=== PATIENT | female | born 1980 | race Caucasian/White ===

== ENCOUNTER → 2017-03-17 | Day surgery (SDC) | payer OTHER ==
[~2017-03-17] VITALS: Ht 167.6 cm; Wt 79.8 kg
[~2017-03-17] MED LIST: MOTRIN 800MG T800 MG PO; PRENATAL1 TA2 PO
--- NOTE | 2017-03-17 08:47 | Operative Report ---
Operative/Inv Procedure Report Surgery Date: 03/17/17 Name of Procedure: laser vaporization of cervix Pre-Operative Diagnosis: ntahan 2-3 Post-Operative Diagnosis: same Estimated Blood Loss: less than 50ml Surgeon/Linotype Machinist Apprentice: Gordo WATTERS,Fady Hoffman Anesthesia: tiva Specimens: bx 12oclock and ecc pre op Complications: none Condition: good Operative/Procedure Note Note: After the induction of anesthesia the patient was placed in the dorsal supine position in high stirrups. The patient was draped in the usual sterile fashion and wet towel drapes were placed over the sterile drapes, appropriate eye protection was instituted. The CO2 laser was connected to the microscope cervix was prepped with Lugol's solution. Pre op Bx taken at 12 oclock and ECC was done. The cervix was circumferentially infiltrated with 5 mL of 1% lidocaine with epinephrine. The transformation zone was vaporized to a depth of 6 mm. Hemostasis was achieved with Monsel solution. Patient was awakened and moved to recovery room in good condition
== END ==
LOC: STS 01:47
DX: D06.9 Carcinoma in situ of cervix, unspecified (principal)
CPT/HCPCS: 81025; 88305; J1100; J2250; J2405